=== PATIENT | male | born 1990 ===

== ENCOUNTER 2019-01-23 23:31 | Emergency (ER) | payer SELFPAY ==
[2019-01-23 23:37] VITALS: BP 110/82; RESP 16; TEMP 98.2; O2SAT 99
--- NOTE | 2019-01-24 00:58 | ED PDOC ---
HPI: Psych/Substance Abuse Time Seen by Provider: 01/23/19 23:45 Chief Complaint (Nursing): Psychiatric Evaluation Chief Complaint (Provider): psych eval History Per: Patient, EMS Additional Complaint(s): 28 y/o male brought in by EMS for psych evaluation. Patient states he was on the phone with his [employer] and stated "I just want to " when he was told how much debt he is in. Patient states marketing secretary then showed up at his door. Patient denies suicidal/homicidal ideations at present. Past Medical History Reviewed: Historical Data, Nursing Documentation, Vital Signs Vital Signs: Last Vital Signs Temp 98.2 F 01/23/19 23:32 Pulse 112 H 01/23/19 23:32 Resp 16 01/23/19 23:32 BP 110/82 01/23/19 23:32 Pulse Ox 99 01/23/19 23:32 - Medical History PMH: No Chronic Diseases - Surgical History Surgical History: No Surg Hx - Family History Family History: States: No Known Family Hx - Allergies Allergies/Adverse Reactions: Allergies Allergy/AdvReac Type Severity Reaction Status Date / Time No Known Allergies Allergy Verified 01/23/19 23:36 Review of Systems ROS Statement: Except As Marked, All Systems Reviewed And Found Negative Physical Exam - Reviewed Nursing Documentation Reviewed: Yes Vital Signs Reviewed: Yes - Physical Exam Appears: Positive for: Well, Non-toxic, No Acute Distress Cardiovascular/Chest: Positive for: Regular Rate, Rhythm Respiratory: Positive for: Normal Breath Sounds Extremity: Positive for: Normal ROM Neurological/Psych: Positive for: Awake, Alert, Oriented (x3) - ECG O2 Sat by Pulse Oximetry: 99 - Progress ED Course And Treament: Patient evaluated by machine shop worker and cleared for discharge as per Dr. Lu Patient requires no further intervention in the ED and is stable for discharge at this time Return precautions given Disposition - Clinical Impression Clinical Impression: Adjustment disorder - Patient ED Disposition Is Patient to be Admitted: No Counseled Patient/Family Regarding: Diagnosis, Need For Followup - Disposition Disposition: Routine/Home Disposition Time: 01:00 Condition: GOOD Instructions: Adjustment Disorder
[2019-01-24 01:03] VITALS: PULSE 94
== END 2019-01-24 01:02 | disposition home or self-care (01) ==
LOC: H.ER 23:31
DX: F43.20 Adjustment disorder, unspecified (principal)